=== PATIENT | female | born 1985 | race Caucasian/White ===

== ENCOUNTER 2017-05-10 09:21 | Day surgery (SDC) | payer OTHER ==
[2017-05-03 11:00] LABS: HEMATOCRIT 40.1 % (36.0-47.0); HEMOGLOBIN 13.4 g/dL (12.0-15.5); HGB HCT DIFFERENCE 0.1; MEAN CORPUSCULAR HEMOGLOBIN 27.9 pg (27.0-33.4); MEAN CORPUSCULAR HGB CONC 33.3 g/dL (32.0-36.0); MEAN CORPUSCULAR VOLUME 84 fl (80-97); RED BLOOD COUNT 4.79 10^6/uL (3.72-5.28); RED CELL DISTRIBUTION WIDTH 14.2 % (11.5-14.0); WHITE BLOOD COUNT 5.6 10^3/uL (4.0-10.5)
[2017-05-03 11:13] LABS: APPEARANCE,URINE CLEAR; BILIRUBIN,URINE NEGATIVE (NEGATIVE); GLUCOSE, URINE NEGATIVE (NEGATIVE); KETONES,URINE NEGATIVE (NEGATIVE); LEUKOCYTE ESTERASE,URINE NEGATIVE (NEGATIVE); NITRITE,URINE NEGATIVE (NEGATIVE); PROTEIN,URINE NEGATIVE (NEGATIVE); URINE SPECIFIC GRAVITY 1.009; UROBILINOGEN,URINE NEGATIVE mg/dL (<2.0)
[2017-05-03 11:29] LABS: ALANINE AMINOTRANSFERASE 21 U/L (9-52); ALBUMIN 4.3 g/dL (3.5-5.0); ALKALINE PHOSPHATASE 80 U/L (38-126); ANION GAP 12 (5-19); ASPARTATE AMINO TRANSFERASE 19 U/L (14-36); BILIRUBIN,DIRECT 0.3 mg/dL (0.0-0.4); BILIRUBIN,TOTAL 0.5 mg/dL (0.2-1.3); BLOOD UREA NITROGEN 11 mg/dL (7-20); CALCIUM 9.3 mg/dL (8.4-10.2); CARBON DIOXIDE 26 mmol/L (22-30); CHLORIDE 101 mmol/L (98-107); CREATININE RESULT 0.69 mg/dL (0.52-1.25); GLUCOSE 76 mg/dL (75-110); POTASSIUM 4.2 mmol/L (3.6-5.0); SODIUM 138.9 mmol/L (137-145); TOTAL PROTEIN 7.5 g/dL (6.3-8.2)
[~2017-05-10 09:21] MED LIST: CEFAZOLIN 2 GM/D5W RTU 2 GM/50 ML RTUPB IV PRN; DEXAMETHASONE SOD PHOSPHATE INJ 4 MG/1 ML VIAL ONE; GABAPENTIN 400 MG CAPSULE PO PRN; GLYCOPYRROLATE INJ 0.4 MG/2 ML VIAL ONE; LACTATED RINGERS 1000 ML IV PRN; LIDOCAINE 0.5% INJ-PF (5 MG/ML) 50 ML SDV SUBCUT PRN; LIDOCAINE 2% INJ-PF (20 MG/ML) 10 ML AMPUL ONE; METOCLOPRAMIDE HCL INJ/PF 10 MG/2 ML SDV ONE; NEOSTIGMINE METHYLSULFATE 10 MG/10 ML VIAL ONE; ONDANSETRON HCL INJ/PF 4 MG/2 ML SDV ONE; PHENYLEPHRINE HCL INJ/PF 10 MG/1 ML SDV ONE; ROCURONIUM BROMIDE INJ 50 MG/5 ML VIAL IV ONE; SUCCINYLCHOLINE CHLORIDE INJ 200 MG/10 ML VIAL ONE
[2017-05-10] MEDS ORDERED: ACETAMINOPHEN 100 ML IV ONE (10:13)
[2017-05-10] MEDS ORDERED: PROPOFOL INJ 200 MG/20 ML VIAL IV ONE (10:13)
[2017-05-10] MEDS ORDERED: FENTANYL CITRATE INJ/PF 100 MCG/2 ML AMPUL ONE (10:13)
[2017-05-10] MEDS ORDERED: MIDAZOLAM 2 MG/2 ML INJ ONE (10:13)
[2017-05-10] MEDS ORDERED: HYDROMORPHONE HCL INJ/PF 2 MG/ML AMPULE ONE (10:14)
[2017-05-10] MEDS ORDERED: IBUPROFEN INJ 800 MG/8 ML VIAL IV ONE (10:14)
[2017-05-10] MEDS ORDERED: SCOPOLAMINE HYDROBROMIDE 1.5 MG PATCH.TD72 ONE (10:33)
[2017-05-10] MEDS ORDERED: BUPIVACAINE HCL 0.25 % INJ/PF (2.5 MG/1 ML) 30 ML VIAL ONE (11:11)
[2017-05-10] MEDS ORDERED: OXYCODONE-ACETAMINOPHEN 5-325 MG TABLET PO PRN ×3 (12:43→14:07)
[2017-05-10] MEDS ORDERED: FENTANYL CITRATE INJ/PF 100 MCG/2 ML AMPUL IV PRN ×3 (12:43)
[2017-05-10] MEDS ORDERED: MORPHINE SULFATE 10 MG/ML INJ IV PRN (12:43)
[2017-05-10] MEDS ORDERED: ONDANSETRON HCL INJ/PF 4 MG/2 ML SDV IV PRN ×2 (12:43→14:08)
[2017-05-10] MEDS ORDERED: DIPHENHYDRAMINE HCL 50 MG/ML VIAL IV PRN (12:43)
[2017-05-10] MEDS ORDERED: MEPERIDINE HCL/PF INJ 25 MG/1 ML DISP.SYRIN IV PRN (12:43)
[2017-05-10] MEDS ORDERED: PROMETHAZINE HCL INJ 25 MG/1 ML VIAL IV PRN ×2 (12:43)
--- NOTE | 2017-05-10 13:54 | PDOC DISCHARGE SUMMARY ---
Discharge Summary (SDC) - Discharge Final Diagnosis: Left endometriomas of the ovary x3 Right hemorrghagic cyst of the ovary x1 Endometriosis of the posterior caul-de-sac and bladder peritoneum Date of Surgery: 05/10/17 Discharge Date: 05/10/17 Condition: Good Forms: Post Operative Treatment or Instructions: Robotic assisted laparoscopic left ovarian cystectomy (endometriomas) x3, right ovarian cystectomy x1 (hemorrhagic) Fulgeration of endometriosis of lesions of the posterior caul-de-sac and anterior bladder peritoneum Referrals: JOHN DIAZ MD [NO LOCAL MD] - (Call [phone] to reach the CLIENT RELATIONSHIP MANAGER nurse for any questions or concerns, and to schedule your follow up appointment in 2-[address] Diaz.) Discharge Diet: Regular Respiratory Treatments at Home: Deep Breathing/Coughing Discharge Activity: Balance Activity w/Rest, No Lifting/Push/Pulling, Pelvic Rest, Slowly Increase Activity, No tub bath - You may shower Report the Following to Your Physician Immediately: Vomiting, Increase in Pain, Fever over 101 Degrees, Redness - at the incision sites, Drainage-Foul Smelling , Increased Vaginal Bleed
[2017-05-10 16:17] VITALS: BP 111/70
--- NOTE | 2017-05-12 11:19 | OPERATIVE REPORT E ---
Operative Report NAME: ROLY SELF : 1985 AGE: 31Y DATE OF SURGERY: 05/12/2017 ROOM: BRIEF OPERATIVE NOTE PREOPERATIVE DIAGNOSES: 1. PELVIC PAIN. 2. DYSMENORRHEA. 3. LEFT OVARIAN ENDOMETRIOMAS. 4. RIGHT OVARIAN HEMORRHAGIC CYST. POSTOPERATIVE DIAGNOSES: 1. PELVIC PAIN. 2. DYSMENORRHEA. 3. LEFT OVARIAN ENDOMETRIOMAS. 4. RIGHT OVARIAN HEMORRHAGIC CYST. 5. DENSE PELVIC ADHESIONS OF THE LEFT SIDEWALL. 6. ENDOMETRIOSIS IMPLANTS OF THE POSTERIOR CUL-DE-SAC AND BLADDER PERITONEUM. PROCEDURES: Robotic-assisted total laparoscopic: 1. Left ovarian cystectomy for endometriomas x3. 2. Right ovarian cystectomy for hemorrhagic cyst x1. 3. Fulguration of endometriosis in the posterior cul-de-sac and bladder peritoneum. 4. Lysis of left pelvic sidewall adhesions. SURGEON: JOHN DIAZ M.D. ASSOCIATE BUYER: JESUS JARRETT M.D. ANESTHESIA: General endotracheal anesthesia. COMPLICATIONS: None. ESTIMATED BLOOD LOSS: 150 mL. URINE: Clear at the end of the procedure. SPECIMENS: 1. Left ovarian cyst wall. 2. Right ovarian cyst wall. FINDINGS: Normal uterus and fallopian tubes. Endometriosis powder-burn lesions of the bladder peritoneum and posterior cul-de-sac including the uterosacral ligaments. Enlarged ovaries bilaterally. Three endometriomas 1 cm to 3 cm in size on the left ovary. One hemorrhagic cyst approximately 2 cm in size on the right ovary. The remaining ovarian tissue was healthy-appearing. INDICATIONS: This is a 31-year-old female with a history of infertility, pelvic pain, dysmenorrhea and dyspareunia refractive to medical management. After discussing risks, benefits, and alternatives, including but not limited to observation, further medical management, and laparotomy were discussed with the patient, and she elected for the above procedures. DESCRIPTION OF PROCEDURE: After the patient was properly consented, she was taken to the operating room where general anesthesia was introduced with endotracheal intubation. She was transferred to a dorsal lithotomy position using adjustable Clark stirrups and prepped and draped in the usual sterile fashion. A final surgical timeout was held. The Hulka uterine manipulator was placed in the vagina and a Morales catheter was inserted in the bladder. Gloves were changes and we proceeded above to the abdomen where 0.25% plain Marcaine local anesthetic was place infraumbilically. A 12 mm skin incision was made with a scalpel followed by a Veress needle introduced into the peritoneal cavity with correct placement confirmed using an opening pressure of 2 mmHg. The abdomen was insufflated to a pressure of 15 mmHg. The Veress needle was removed and a 12 mm bladeless trocar was advanced into the pneumoperitoneum and immediate visualization with the camera demonstrated no damage to the underlying structures. We subsequently placed 2 right lateral and 1 left lower lateral 8 mm port following the typical routine of local anesthetic followed by a skin incision followed by the placement of the port under direct visualization. With all ports in place, the patient was put in steep Trendelenburg position then the robot was docked at the patient bedside. The pelvic anatomy was inspected using the robot and the findings were noted above. The ureters were identified by peristalsis in their usual course at the pelvic brim bilaterally. Dissection was begun using the fenestrated bipolar graspers and the monopolar scissors to free adhesions of the left pelvic sidewall and left adnexa. Next, the endometriomas of the left ovary were incised and drained. Suction irrigation was used to clean out each cavity in the pelvis. Next, instruments were changed to the bipolar Maryland's and the Prograf, easily used to dissect and peel each cyst wall from the ovarian tissue. The cyst wall tissue was removed with graspers through the kennel assistant port and sent to pathology. Next, bipolar cautery was used to achieve hemostasis of each of the beds from which the cyst barnard were removed. Attention was then turned to the right side where bipolar cautery was used to incise the area over the hemorrhagic cyst. The blood was evacuated with suction irrigation. Again, the cyst wall was dissected free from the ovarian tissue using the Maryland's and the Prograf. This tissue was also removed through the kennel assistant port and sent to pathology. Finally, the whole pelvis was closely inspected and over a dozen areas of powder-burn lesions in the areas noted above were treated with cautery. Pelvis was then copiously irrigated and hemostasis was noted to be excellent. FloSeal hemostatic agent was then placed into each of the cyst cavities on both ovaries and the tissue was folded carefully around it. The ovaries then lay in their normal anatomical position in the pelvic sidewalls. The operative instruments were removed and the abdomen was relieved while CO2 gas and the ports and camera were also removed. The 12 mm port site fascia was closed with 0-Vicryl suture and the skin of all ports was closed with 4-0 Monocryl in a subcuticular fashion and a Dermabond dressing was applied. Anesthesia was reversed. Sponge, lap, and needle counts were correct at the end of the procedure. The patient was taken to the PACU in stable condition. DICTATING PHYSICIAN: JOHN DIAZ M.D. [id number] PHY#: [id number] ID: [id number] JOB#: [id number] ACCT: [id number] cc:JOHN DIAZ M.D. >
== END 2017-05-10 16:10 | disposition home or self-care (01) ==
LOC: OROUT 09:21
PROVIDERS: ATTEND Obstetrics & Gynecology
PROC: 0UB04ZZ Excision of Right Ovary, Percutaneous Endoscopic Approach (ICD-10-PCS; 2017-05-10)
PROC: 8E0W4CZ Robotic Assisted Procedure of Trunk Region, Percutaneous Endoscopic Approach (ICD-10-PCS; 2017-05-10)
PROC: 0D5W4ZZ Destruction of Peritoneum, Percutaneous Endoscopic Approach (ICD-10-PCS; 2017-05-10)
PROC: 0T5B4ZZ Destruction of Bladder, Percutaneous Endoscopic Approach (ICD-10-PCS; 2017-05-10)
PROC: 0UB14ZZ Excision of Left Ovary, Percutaneous Endoscopic Approach (ICD-10-PCS; principal; 2017-05-10 11:30)
DX: N80.1 Endometriosis of ovary (principal); N83.11 Corpus luteum cyst of right ovary; N80.3 Endometriosis of pelvic peritoneum; N80.8 Other endometriosis; R10.2 Pelvic and perineal pain; N94.6 Dysmenorrhea, unspecified; K66.0 Peritoneal adhesions (postprocedural) (postinfection)
CPT/HCPCS: 53899; 58662; S2900; 36415; 80053; 81001; 81025; 840; 84132; 85027; 86850; 86900; 86901; 88305; J0131; J0330; J0690; J1100; J1170; J1741; J2250; J2370; J2405; J2704; J2765; J3010; J3490

== ENCOUNTER 2017-08-10 09:34 | Day surgery (SDC) | payer OTHER ==
--- NOTE | 2017-08-03 18:07 | HISTORY AND PHYSICAL E ---
History and Physical NAME: ROLY SELF : 1985 AGE: 31Y ADMITTED: 08/10/2017 ROOM: CHIEF COMPLAINT: The patient presented at this time rectal bleeding, constipation, hemorrhoids. Plan colonoscopy. Referred by JOAN. SOCIAL HISTORY: Does not smoke, does not drink. PAST SURGICAL HISTORY: 1. She did have a just removed left ovary. 2. The patient had a vaginal delivery 2010. 3. She did have hemorrhoids. REVIEW OF SYSTEMS: CARDIAC: Negative. RESPIRATORY: Negative. ENDOCRINE: Negative. GASTROINTESTINAL: Reflux, constipation. PHYSICAL EXAMINATION: VITAL SIGNS: Blood pressure 120/80, pulse 80, respirations 18, temperature 98. HEAD, EARS, EYES, NOSE AND THROAT: Normal. NECK: Supple. LUNGS: Clear. ABDOMEN: Soft. NEUROLOGIC: Exam negative. CONCLUSION: 1. Rectal bleeding. 2. Constipation. PLAN: The patient will undergo colonoscopy, admit 08/10. DICTATING PHYSICIAN: GUICHO MORA M.D. [id number] PHY#: [id number] ID: [id number] JOB#: [id number] ACCT: [id number] cc:[facility], GUICHO MORA M.D. >
[~2017-08-10 09:34] MED LIST changes: -CEFAZOLIN 2 GM/D5W RTU 2 GM/50 ML RTUPB IV PRN; -DEXAMETHASONE SOD PHOSPHATE INJ 4 MG/1 ML VIAL ONE; +EPINEPHRINE INJ 1 MG/10 ML DISP.SYRIN ONE; +FENTANYL CITRATE INJ/PF 100 MCG/2 ML AMPUL ONE; +FLUMAZENIL INJ 0.5 MG/5 ML VIAL ONE; -GABAPENTIN 400 MG CAPSULE PO PRN; +GLUCAGON,HUMAN RECOMB 1 MG INJ ONE; -LACTATED RINGERS 1000 ML IV PRN; -LIDOCAINE 0.5% INJ-PF (5 MG/ML) 50 ML SDV SUBCUT PRN; -LIDOCAINE 2% INJ-PF (20 MG/ML) 10 ML AMPUL ONE; +LIDOCAINE 2% JELLY 30 ML TUBE ONE; -METOCLOPRAMIDE HCL INJ/PF 10 MG/2 ML SDV ONE; +NALOXONE HCL INJ/PF 0.4 MG/1 ML SDV ONE; -NEOSTIGMINE METHYLSULFATE 10 MG/10 ML VIAL ONE; -PHENYLEPHRINE HCL INJ/PF 10 MG/1 ML SDV ONE; -ROCURONIUM BROMIDE INJ 50 MG/5 ML VIAL IV ONE; -SUCCINYLCHOLINE CHLORIDE INJ 200 MG/10 ML VIAL ONE
[2017-08-10] MEDS: MIDAZOLAM 2 MG/2 ML INJ ONE ×3 (10:31→10:40)
--- NOTE | 2017-08-10 11:33 | DISCHARGE SUMMARY E ---
Discharge Summary NAME: ROLY SELF : 1985 AGE: 31Y ADMITTED: 08/10/2017 DISCHARGED: 08/10/2017 HISTORY: A 31-year-old female presented with rectal bleeding. Colonoscopy was incomplete to the splenic curve because of sharp *------* and poor tolerance. DISCHARGE PLAN: 1. Soft diet. 2. Lab studies. 3. Follow up office visit in the next few days, awaiting lab studies. DICTATING PHYSICIAN: GUICHO MORA M.D. [id number] PHY#: [id number] ID: [id number] JOB#: [id number] ACCT: [id number] cc:[facility] GUICHO MORA M.D. >
[2017-08-10] MEDS ORDERED: PROMETHAZINE HCL INJ 25 MG/1 ML VIAL ONE (12:01)
[2017-08-10 12:12] LABS: ABSOLUTE LYMPHOCYTES (AUTO) 1.1 10^3/uL (0.5-4.7); ABSOLUTE MONOCYTES (AUTO) 0.4 10^3/uL (0.1-1.4); ABSOLUTE NEUT (AUTO) 6.1 10^3/uL (1.7-8.2); BASOPHILS % (AUTO) 0.4 % (0-2); EOSINOPHILS % (AUTO) 0.5 % (0-6); HEMATOCRIT 34.2 % (36.0-47.0); HEMOGLOBIN 11.4 g/dL (12.0-15.5); LYMPHOCYTES % (AUTO) 14.7 % (13-45); MEAN CORPUSCULAR HEMOGLOBIN 26.6 pg (27.0-33.4); MEAN CORPUSCULAR HGB CONC 33.4 g/dL (32.0-36.0); MEAN CORPUSCULAR VOLUME 80 fl (80-97); MONOCYTES % (AUTO) 5.2 % (3-13); RED BLOOD COUNT 4.29 10^6/uL (3.72-5.28); RED CELL DISTRIBUTION WIDTH 14.4 % (11.5-14.0); SEGMENTED NEUTROPHILS % (AUTO) 79.2 % (42-78); WHITE BLOOD COUNT 7.7 10^3/uL (4.0-10.5)
[2017-08-10 12:53] LABS: ERYTHROCYTE SEDIMENTATION RATE 6 mm/hr (0-20)
[2017-08-10 13:38] VITALS: BP 112/60
--- NOTE | 2017-08-10 14:07 | OPERATIVE REPORT E ---
Operative Report NAME: ROLY SELF : 1985 AGE: 31Y DATE OF SURGERY: 08/10/2017 ROOM: PREOPERATIVE DIAGNOSIS: Rectal bleeding and blood in the stool. POSTOPERATIVE DIAGNOSIS: External hemorrhoids. PROCEDURE: Incomplete colonoscopy to the splenic curve. SURGEON: GUICHO MORA M.D. ANESTHESIA: Versed 6 mg and Fentanyl 200 mcg. TISSUE REMOVED OR ALTERED: None. PROCEDURE: After adequate sedation rectal exam shows external hemorrhoids. Rectum, sigmoid normal. Descending colon normal. Splenic curve very sharp curve, difficult to intubate. Patient has a sharp junction between transverse colon and descending colon. Mucosa looks essentially normal. I did not see any sign of ulcerative colitis or Crohn disease. Because of the patient's young age and her poor tolerance and sharp curve we elected not to proceed to the cecum. Scope withdrawn from splenic, descending, sigmoid all the way to the rectum. CONCLUSIONS: External hemorrhoids. PLAN: We will obtain serology for inflammatory bowel disease, CRP and CBC with sed rate and see the patient in followup in the next few days. DICTATING PHYSICIAN: GUICHO MORA M.D. [id number] PHY#: [id number] ID: [id number] JOB#: [id number] ACCT: [id number] cc:[facility] GUICHO MORA M.D. >
== END 2017-08-10 13:10 | disposition home or self-care (01) ==
LOC: END 09:34
PROVIDERS: ATTEND Specialist
PROC: 0DJD8ZZ Inspection of Lower Intestinal Tract, Via Natural or Artificial Opening Endoscopic (ICD-10-PCS; principal; 2017-08-10 11:00)
DX: K59.00 Constipation, unspecified (principal); K44.9 Diaphragmatic hernia without obstruction or gangrene
CPT/HCPCS: 45378; 36415; 85025; 85652; J2250; J3010; J1610; J2550; J2405; J0171; J2310; J3490

== ENCOUNTER → 2017-08-13 | Outpatient (CLI) | payer OTHER ==
[2017-08-13 14:17] LABS: ABSOLUTE EOSINOPHILS # (AUTO) 0.2 10^3/uL (0.0-0.6); ABSOLUTE LYMPHOCYTES (AUTO) 1.6 10^3/uL (0.5-4.7); ABSOLUTE MONOCYTES (AUTO) 0.4 10^3/uL (0.1-1.4); ABSOLUTE NEUT (AUTO) 4.3 10^3/uL (1.7-8.2); BASOPHILS % (AUTO) 0.5 % (0-2); EOSINOPHILS % (AUTO) 2.6 % (0-6); HEMATOCRIT 35.7 % (36.0-47.0); HEMOGLOBIN 11.8 g/dL (12.0-15.5); HGB HCT DIFFERENCE -0.3; LYMPHOCYTES % (AUTO) 24.9 % (13-45); MEAN CORPUSCULAR HEMOGLOBIN 26.7 pg (27.0-33.4); MEAN CORPUSCULAR VOLUME 81 fl (80-97); MONOCYTES % (AUTO) 5.7 % (3-13); RED BLOOD COUNT 4.42 10^6/uL (3.72-5.28); RED CELL DISTRIBUTION WIDTH 14.7 % (11.5-14.0); SEGMENTED NEUTROPHILS % (AUTO) 66.3 % (42-78); WHITE BLOOD COUNT 6.5 10^3/uL (4.0-10.5)
[2017-08-13 14:55] LABS: ERYTHROCYTE SEDIMENTATION RATE 4 mm/hr (0-20)
== END ==
LOC: OD 13:40
PROVIDERS: ATTEND Specialist
DX: K52.9 Noninfective gastroenteritis and colitis, unspecified (principal)
CPT/HCPCS: 36415; 85025; 85652; 86140